=== PATIENT | male | born 1970 | race American Indian/Alaskan Native ===

== ENCOUNTER 2017-11-17 18:30 | Emergency (ER) | payer MEDICAID, OTHER ==
[2017-11-17 18:35] VITALS: BP 172/113
[2017-11-17] MEDS ORDERED: Sodium Chloride 0.9% 10 ML Syringe FLUSH PRN (18:44)
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
[2017-11-17 19:19] LABS: ANION GAP 17.2; CHLORIDE,CL 99 mmol/L (101-111); SODIUM,NA 137 mmol/L (135-145)
== END 2017-11-17 20:40 ==
LOC: DL.ED 18:30
DX: S01.81XA Laceration without foreign body of other part of head, initial encounter (principal); Y04.2XXA Assault by strike against or bumped into by another person, initial encounter; Z88.5 Allergy status to narcotic agent; Z23 Encounter for immunization
CPT/HCPCS: 12011; 36415; 70450; 80053; 80305; 81001; 85025; 99285; G0480; J7050

== ENCOUNTER 2020-01-11 11:09 | Emergency (ER) | payer MEDICAID, OTHER ==
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
[2020-01-11] MEDS ORDERED: Metoclopramide 10 MG/2 ML SDV IVPUSH ONE (11:41)
[2020-01-11 11:55] LABS: ANION GAP 10.8 mEq/L (7-13); CHLORIDE,CL 101 mmol/L (98-107); SODIUM,NA 139 mmol/L (136-145)
[2020-01-11] MEDS ORDERED: Iopamidol 755 Mg/ML 100 ML Bottle IVPUSH ONE (12:06)
[2020-01-11] MEDS ORDERED: fentaNYL 100 MCG/2 ML SDV IVPUSH ONE (12:17)
[2020-01-11] MEDS ORDERED: Sodium Chloride 0.9% 1,000 ML IV ONE (12:17)
--- NOTE | 2020-01-11 12:35 | CR ---
EXAMINATION: Chest 1V Frontal SEX: Male AGE: 49 years CLINICAL HISTORY: 49-year-old male complaining of CHEST PAIN. No comparison films. INTERPRETATION: External registered nurse cardiac telemetry leads. 1. *Asymmetric elevation right hemidiaphragm with suggestion small ipsilateral right pleural effusion. 2. Normal cardiac silhouette. No pulmonary vascular congestion, cephalization of flow, or alveolar edema. 3. No lung mass or hilar lymphadenopathy. 4. No focal lobar pneumonia, atelectasis or collapse. 5. No pneumothorax. CONCLUSION:
[2020-01-11] MEDS ORDERED: Pantoprazole 40 MG Vial IVPUSH ONE (12:37)
[2020-01-11] MEDS ORDERED: Iopamidol 612 MG/ML 100 ML Bottle IVPUSH ONE (12:38)
[2020-01-11] MEDS ORDERED: Iopamidol 612 MG/ML 50 ML SDV IVPUSH ONE (13:36)
--- NOTE | 2020-01-11 15:21 | CT ---
EXAMINATION: Chest Abdomen Pelvis w Cont SEX: Male AGE: 49 years CLINICAL HISTORY: 49-year-old hypertensive male with chest pain, abnormal elevated liver enzymes, and vomiting. No known surgeries or recent trauma. "Asymmetric elevation right hemidiaphragm" (CXR). Scan technique: Volume acquisition of data from the chest, abdomen and pelvis obtained without oral contrast but during intravenous administration 125 cc nonionic Isovue contrast a 2.5 cc/s via injector while patient was lying supine on the Siemens multislice scanner [place], [place]. All data archived in the PACS system for storage, reformatting axial/sagittal/coronal planes and study. Interpretation: 1. Asymmetric elevation right hemidiaphragm with some underlying platelike atelectasis. No lower lobe pneumonia or subdiaphragmatic abscess. 2. Normal cardiac silhouette. No pericardial or pleural effusions. No pulmonary vascular congestion, cephalization of flow or alveolar edema. No lung mass or significant hilar/mediastinal lymphadenopathy. 3. Gallbladder, liver (mild fatty infiltration), stomach, spleen, pancreas and adrenal glands unremarkable. 4. Right renal cortical cysts (3 ranging from 1-2 cm diameter). No nephrolithiasis or obstructive uropathy. 5. Atheromatous calcifications at the bifurcation aortoiliac vessels and phleboliths/prostate calcifications. No aneurysm or dissection. 6. Diverticula transverse and splenic flexure of the colon. No associated inflammation. 7. No abdominal or pelvic mass lesion, inflammatory "dirty" peritoneal fat, ventral wall hernia, mechanical bowel obstruction, ascites or free intraperitoneal air. No foreign bodies. 8. Hypertrophic marginal spondylosis mid and lower lumbar spine (multilevel lower lumbar disc disease). CONCLUSION: Fatty liver. Right renal cortical cysts. Diverticulosis transverse colon. Abnormal L-spine.
[2020-01-11 16:21] VITALS: BP 135/96; PULSE 87
== END 2020-01-11 16:29 | disposition home or self-care (01) ==
LOC: DL.ED 11:09
DX: K29.20 Alcoholic gastritis without bleeding (principal); I10 Essential (primary) hypertension; Z88.5 Allergy status to narcotic agent; Z20.828 Contact with and (suspected) exposure to other viral communicable diseases
CPT/HCPCS: 36415; 71045; 71260; 74177; 80053; 80305-QW; 80307; 81001; 82150; 83605; 83615; 83690; 84146; 84484; 85025; 85379; 86140; 93005; 96361; 96374; 96375; 99283; 99285-25; C9113; J2765; J3010; J7030; Q9967; U0002

== ENCOUNTER 2020-08-22 22:48 | Emergency (ER) | payer MEDICAID, OTHER ==
[2020-08-22 22:46] VITALS: BP 127/99; PULSE 82
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
[2020-08-22] MEDS ORDERED: Bacitracin Oint 1 GM U/D Packet TOP ONE (23:09)
[2020-08-22 23:15] LABS: ANION GAP 18.6 mEq/L (7-13); CHLORIDE,CL 103 mmol/L (98-107); SODIUM,NA 141 mmol/L (136-145)
[2020-08-22] MEDS ORDERED: MVI, Adult with Vitamin K 10 ML, Folic Acid 1 MG, Thiamine 100 MG in Lactated Ringers 1... IV ONE ×4 (23:28)
--- NOTE | 2020-08-22 23:48 | CR ---
PROCEDURE INFORMATION: Exam: XR Left Wrist Exam date and time: 08/22/2020 11:05 PM Age: 49 years old Clinical indication: Other: Pain; Additional info: Fall TECHNIQUE: Imaging protocol: XR Left wrist. Views: 3 or more views. COMPARISON: No relevant prior studies available. FINDINGS: Bones/joints: No acute fracture. No dislocation. Normal bone mineralization. No joint effusion. Joint spaces are maintained. Soft tissues: No soft tissue swelling. No radiopaque foreign body. IMPRESSION: No acute fracture. Followup imaging recommended in 7-14 days if clinical concern for fracture persists.
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
== END 2020-08-23 01:48 | disposition home or self-care (01) ==
LOC: DL.ED 22:48
DX: S63.502A Unspecified sprain of left wrist, initial encounter (principal); S00.83XA Contusion of other part of head, initial encounter; S80.212A Abrasion, left knee, initial encounter; S80.211A Abrasion, right knee, initial encounter; F10.129 Alcohol abuse with intoxication, unspecified; I10 Essential (primary) hypertension; Z88.5 Allergy status to narcotic agent; Y90.7 Blood alcohol level of 200-239 mg/100 ml; W19.XXXA Unspecified fall, initial encounter
CPT/HCPCS: 36415; 70450; 70486; 72125; 73110; 80053; 80305; 80307; 81003; 82150; 83690; 85025; 85610; 96365; 99283; 99284; J3411; J7120; J3490

== ENCOUNTER 2021-11-16 02:18 | Emergency (ER) | payer OTHER ==
[2021-11-16 02:16] VITALS: BP 134/93; PULSE 74
[2021-11-16] MEDS ORDERED: Lidocaine 1% 30 ML SDV INJECT ONE (03:26)
[2021-11-16 03:37] LABS: ANION GAP 10.7 mEq/L (7-13)
[2021-11-16] MEDS ORDERED: Bacitracin Oint 1 GM U/D Packet TOP ONE (05:12)
== END 2021-11-16 05:25 | disposition home or self-care (01) ==
LOC: DL.ED 02:18
DX: S01.112A Laceration without foreign body of left eyelid and periocular area, initial encounter (principal); F10.129 Alcohol abuse with intoxication, unspecified; Y90.8 Blood alcohol level of 240 mg/100 ml or more; I10 Essential (primary) hypertension; Z88.5 Allergy status to narcotic agent; Y08.89XA Assault by other specified means, initial encounter
CPT/HCPCS: 12011; 36415; 70450; 70486; 72125; 73030-LT; 80053; 80307; 83735; 85025; 99284; 99285-25

== ENCOUNTER 2022-06-07 04:06 | Emergency (ER) | payer SELFPAY ==
[2022-06-07] MEDS ORDERED: Iopamidol 612 MG/ML 100 ML Bottle IVPUSH ONE (04:23)
[2022-06-07] MEDS ORDERED: MVI, Adult with Vitamin K 10 ML, Folic Acid 1 MG, Thiamine 100 MG in Lactated Ringers 1... IV ONE ×4 (04:34)
[2022-06-07] MEDS ORDERED: Ondansetron 4 MG/2 ML SDV IVPUSH ONE (04:34)
[2022-06-07 06:37] VITALS: BP 115/88; PULSE 82
== END 2022-06-07 06:54 | disposition home or self-care (01) ==
LOC: DL.ED 04:06
DX: S02.2XXA Fracture of nasal bones, initial encounter for closed fracture (principal); S00.83XA Contusion of other part of head, initial encounter; S60.222A Contusion of left hand, initial encounter; I10 Essential (primary) hypertension; Z88.5 Allergy status to narcotic agent; Y04.2XXA Assault by strike against or bumped into by another person, initial encounter
CPT/HCPCS: 70450; 70486; 71250; 72125; 73130; 74176; 96365; 96375; 99284; J2405; J3411; J7120; Q9967; J3490

== ENCOUNTER 2022-07-22 23:27 | Emergency (ER) | payer SELFPAY ==
[2022-07-22 23:34] VITALS: BP 87/53; PULSE 99
[2022-07-22] MEDS ORDERED: Lactated Ringers 1,000 ML IV ONE (23:47)
[2022-07-23 00:06] LABS: CORONAVIRUS COVID-19 NAA NEGATIVE (NEGATIVE); RESPIRATORY SYNCYTIAL VIR NAA NEGATIVE (NEGATIVE)
[2022-07-23 00:27] LABS: CHLORIDE,CL 95 mmol/L (98-107); SODIUM,NA 130 mmol/L (136-145)
[2022-07-23 00:44] LABS: ESTIMATED GFR 21 mL/min (>=60)
[2022-07-23] MEDS ORDERED: MVI, Adult with Vitamin K 10 ML, Thiamine 100 MG, Folic Acid 1 MG in Lactated Ringers 1... IV ONE ×4 (00:48)
[2022-07-23] MEDS ORDERED: Magnesium Sulfate/Water 2 GM in Premix Bag 1 BAG IV ONE (01:07)
[2022-07-23] MEDS ORDERED: cefTRIAXone 1 GM Vial IVPUSH ONE (01:35)
[2022-07-23] MEDS ORDERED: Albumin 25% 12.5 GM in Premix Bag 1 BAG IV ONE (03:22)
[2022-07-23] MEDS ORDERED: Piperacillin/Tazobactam 3.375 GM in Sodium Chloride 0.9% 100 ML IV ONE (03:48)
[2022-07-23 04:29] LABS: AMPHETAMINES,URINE NEGATIVE (NEGATIVE); BARBITURATES,URINE NEGATIVE (NEGATIVE); BENZODIAZEPINE,URINE NEGATIVE (NEGATIVE); MDMA (ECSTASY), URINE NEGATIVE (NEGATIVE); METHADONE,URINE NEGATIVE (NEGATIVE); METHAMPHETAMINES,URINE NEGATIVE (NEGATIVE); OPIATES,URINE NEGATIVE (NEGATIVE); OXYCODONE,URINE NEGATIVE (NEGATIVE); PHENCYCLIDINE,URINE NEGATIVE (NEGATIVE); TCA,URINE NEGATIVE (NEGATIVE)
== END 2022-07-23 04:38 ==
LOC: DL.ED 23:27
DX: N17.9 Acute kidney failure, unspecified (principal); K72.00 Acute and subacute hepatic failure without coma; R65.10 Systemic inflammatory response syndrome (SIRS) of non-infectious origin without acute organ dysfunction; E87.1 Hypo-osmolality and hyponatremia; E83.42 Hypomagnesemia; K76.0 Fatty (change of) liver, not elsewhere classified; K82.8 Other specified diseases of gallbladder; K68.9 Other disorders of retroperitoneum; E53.8 Deficiency of other specified B group vitamins; D69.59 Other secondary thrombocytopenia; F10.20 Alcohol dependence, uncomplicated; I10 Essential (primary) hypertension; Z20.822 Contact with and (suspected) exposure to COVID-19; Z88.5 Allergy status to narcotic agent
CPT/HCPCS: 0241U; 36415; 71250; 74176; 80053; 80305-QW; 80307; 81001; 82150; 82550; 82607; 82746; 83605; 83690; 83735; 85025; 85610; 86140; 87040; 87086; 96361; 96365; 96367; 96368; 96375; 99285; 99285-25; J0696; J2543; J3411; J3475; J3490; J7050; J7120; P9047